=== PATIENT | male | born 1975 | race Caucasian/White ===

== ENCOUNTER → 2020-12-31 15:04 | Outpatient (CLI) | payer OTHER, SELFPAY ==
[2020-12-31 18:28] LABS: Anion Gap 6 (5-15); BUN 18 mg/dL (7-18); BUN/Creat Ratio 15.3 RATIO (10-20); Calcium,Total 9.1 mg/dL (8.5-10.1); Chloride 102 mmol/L (98-107); Cholesterol 216 mg/dL (200); Creatinine, Serum 1.18 mg/dL (0.70-1.30); EST Glomerular Filtration Rate 71 mL/min (>60); Est Glom Filt Rate - Afr Amer 85 mL/min (>60); Glucose 90 mg/dL (74-106); High Density Lipoprotein 87 mg/dL; Potassium 3.6 mmol/L (3.5-5.1); Sodium Level 137 mmol/L (136-145); Triglycerides 104 mg/dL; Very Low Density Lipoprotein 21 mg/dL (5-40)
== END ==
PROVIDERS: PCP Family Medicine; Referring Provider Family Medicine; Visit Provider Family Medicine
DX: Z00.00 Encounter for general adult medical examination without abnormal findings (principal)
CPT/HCPCS: 36415; 80048; 80061

== ENCOUNTER → 2024-11-22 | Outpatient (CLI) | payer OTHER, SELFPAY ==
--- NOTE | 2024-11-22 09:59 | RAD_ITS ---
PROCEDURE: SHOULDER MIN 2 VIEWS 11/22/2024 REASON FOR EXAM: PAIN, LIMITED RANGE OF MOTION TECHNIQUE: Procedure Code: RAD Modality: DX Procedure: SHOULDER MIN 2 VIEWS Laterality: Left COMPARISON: None. FINDINGS: BONES: No acute fracture or focal osseous lesion. JOINTS: No dislocation. Mild arthritic changes in the glenohumeral and acromioclavicular joints. SOFT TISSUES: The soft tissues are unremarkable. RAD/Shoulder min 2 Views IMPRESSION: No acute findings. Mild degenerative osteoarthrosis. Reading Location: [id number]
--- OUTSIDE RECORDS SUMMARY | 2024-11-22 10:48 | XMS RPT_ITS | CCD ---
Author Organization [facility] ion [facility] Care Team Providers [facility] A[facility] Name Role Phone Rosybharat Celi Murillo Unavailable Unavailable Harsha Vieira MD Unavailable Deedee Aguilar Unavailable Unavailable Laipply, Jazzmine Unavailable Unavailable PROVIDER, UNKNOWN Unavailable Unavailable Jolliff, Madisyn S Unavailable Unavailable Laipply, Jazzmine Unavailable Unavailable PROVIDER, UNKNOWN Unavailable Unavailable Jolliff, Madisyn S Unavailable Unavailable Laipply, Jazzmine Unavailable Unavailable Jolliff, Madisyn S Unavailable Unavailable PROVIDER, UNKNOWN Unavailable Unavailable Laipply, Jazzmine Unavailable Unavailable Jolliff, Madisyn S Unavailable Unavailable PROVIDER, UNKNOWN Unavailable Unavailable Laipply, Jazzmine Unavailable Unavailable Jolliff, Madisyn S Unavailable Unavailable PROVIDER, UNKNOWN Unavailable Unavailable Laipply, Jazzmine Unavailable Unavailable Jolliff, Madisyn S Unavailable Unavailable PROVIDER, UNKNOWN Unavailable Unavailable Laipply, Jazzmine Unavailable Unavailable Jolliff, Madisyn S Unavailable Unavailable PROVIDER, UNKNOWN Unavailable Unavailable Laipply, Jazzmine Unavailable Unavailable Jolliff, Madisyn S Unavailable Unavailable PROVIDER, UNKNOWN Unavailable Unavailable Laipply, Jazzmine Unavailable Unavailable Jolliff, Madisyn S Unavailable Unavailable PROVIDER, UNKNOWN Unavailable Unavailable Laipply, Jazzmine Unavailable Unavailable Jolliff, Madisyn S Unavailable Unavailable PROVIDER, UNKNOWN Unavailable Unavailable Laipply, Jazzmine Unavailable Unavailable Jolliff, Madisyn S Unavailable Unavailable PROVIDER, UNKNOWN Unavailable Unavailable Laipply, Jazzmine Unavailable Unavailable PROVIDER, UNKNOWN Unavailable Unavailable Jolliff, Madisyn S Unavailable Unavailable Leisa Gonzalez Unavailable Unavailable Harsha Vieira MD Unavailable MADISYN EDWARDS Primary Care Unavailable Medications Completed/Discontinued Medications Medication Drug Class(es) Dates Sig (Normalized) Sig (Original) acetaminophen 325 mg / HYDROcodone bitartrate 5 mg oral tablet (20 sources) Opioid Agonist Start: 08-25-2016 take 1 tablet by mouth every six hours as needed for pain HYDROCODONE-ACETA MINOPHEN 5-325 MG TABS 1 tab PO every 6 hours PRN pain HYDROCODONE-ACETA MINOPHEN [id number] Harsha Vieira MD amoxicillin 875 mg / clavulanate 125 mg oral tablet (20 sources) Penicillin-class Antibacterial Start: 08-30-2016 take 1 tablet by mouth twice daily AMOXICILLIN-POT CLAVULANATE 875-125 MG TABS 1 tab PO Twice daily AMOXICILLIN-POT CLAVULANATE [id number] Harsha Vieira MD lansoprazole 15 mg disintegrating oral tablet (11 sources) Proton Pump Inhibitor Start: 08-25-2016 take 1 tablet by mouth once daily PREVACID 15 MG CPDR One tablet by mouth daily LANSOPRAZOLE [id number] Leisa A Gonzalez Start: 08-25-2016 take 1 tablet by ascencion once daily PREVACID 15 MG CPDR One tablet by mouth daily LANSOPRAZOLE [id number] Leisa A Gonzalez MULTIPLE VITAMINS-MINERALS (5 sources) Start: 08-25-2016 take 1 tablet by mouth once daily DAILY MULTIVITAMIN CAPS One tablet by mouth daily MULTIPLE VITAMINS-MINERALS [id number] Leisa A Gonzalez MULTIPLE VITAMINS-MINERALS (6 sources) Start: 08-25-2016 take 1 tablet by mouth once daily DAILY MULTIVITAMIN CAPS One tablet by mouth daily MULTIPLE VITAMINS-MINERALS [id number] Leisa A Gonzalez Problems Active Problems Problem Classification Problem Date Documented Date Episodic/Chronic Esophageal disorders (20 sources) Gastroesophageal reflux disease; Translations: [Gastro-esophageal reflux disease with esophagitis] Onset: 08-25-2016 08-25-2016 Chronic Other nutritional; endocrine; and metabolic disorders (12 sources) Overweight; Translations: [Overweight] Onset: 08-25-2016 08-25-2016 Chronic Unclassified (2 sources) Other specified postprocedural states; Translations: [Other specified postprocedural states] Onset: 03-16-2017 Past or Other Problems Problem Classification Problem Date Documented Date Episodic/Chronic Anal and rectal conditions (20 sources) Perirectal abscess; Translations: [Anal pain] Onset: 08-25-2016 09-08-2016 Episodic Hemorrhoids (11 sources) Hemorrhoids; Translations: [Unspecified hemorrhoids] Onset: 08-25-2016 08-25-2016 Episodic Medical examination/evaluatio n (2 sources) Encounter for other preprocedural examination; Translations: [Encounter for other preprocedural examination] Onset: 12-10-2016 Episodic Skin and subcutaneous tissue infections (2 sources) Pilonidal sinus without abscess; Translations: [Pilonidal sinus without abscess] Onset: 10-13-2016 Episodic Unclassified (6 sources) Family history of malignant neoplasm of prostate; Translations: [Body mass index (BMI) 27.0-27.9, adult] Onset: 10-27-2016 Episodic Results Test Name Value Interpretation Reference Range Facility [facility] 08-09-2022 CN Office Visit (UCWSTR ) ----- KWAN MARIE ([id number]) 1975 M Date Time Provider Department 08/09/22 9:15 AM MADDY KENNEDY [facility] During your visit today, we recorded the following information about you: Temperature Pulse Respiration Blood pressure 97.4 degrees 108/minute 16/minute 122/74 Weight 75.8 kg Maddy Kennedy APRN.CNP 08/09/2022 9:46 AM Signed CC: Patient presents with: Sore Throat: x 3 days HPI: Kwan Marie is a 46 year old male who presents to the office with complaint of sore throat for a few days. Symptoms are staying the same. Associated symptoms includes sore throat. Denies fever, ear pain, cough, nausea, vomiting , and diarrhea. Treatments tried include nothing so far. with no relief of symptoms. Sick contacts: unknown. History of asthma, frequent episodes of bronchitis, chronic bronchitis, bronchiectasis or COPD: No Smoker: No Seasonal/environmental allergies: No The ROS is otherwise negative. The patient's pmh, medications, allergies, and past visits are reviewed. PHYSICAL EXAM: BP 122/74 Pulse 108 Temp 36.3 ?C (97.4 ?F) Resp 16 Wt 75.8 kg (167 lb) SpO2 98% General appearance: alert, cooperative, pleasant, in no acute distress Head: Normocephalic Eyes: EOM's intact, conjunctiva pink and moist, no icterus, sclera white, non-injected Ears: Right ear: External ear/canal- Normal, TM - clear with good landmarks. Left ear: External ear/canal- Normal, TM - clear with good landmarks Oropharynx:moderate erythema, without exudates present Heart: Negative. RRR without obvious murmur, gallop, or rubs. No ectopy. Lungs: clear to auscultation, without rales or wheeze, good air exchange No past medical history on file. No past surgical history on file. ALLERGIES Patient has no known allergies. MEDICATIONS No prescriptions on file. No family history on file. Social History Tobacco Use Smoking status: Never ASSESSMENT/PLAN: 1. Sore throat - ICD9: 462, ICD10: J02.9 - STREP A MOLECULAR (POC) - neg - RORNQIHOFYFTGDJ-JOVRCVK-L IDOCAINE ([facility]) Prescription instructions reviewed with patient as applicable. Potential red flag symptoms discussed with the patient. Reviewed appropriate action plan to take if red flag symptoms occur. Patient agreeable to treatment plan. Will follow up if symptoms worsen. Maddy Kennedy APRN.PERMIT COORDINATOR Allergies As of Date: 08/09/2022 (No Known Allergies) Date Reviewed: 08/09/2022 Reviewed by: Talia Owens - Fully Assessed Reason for Visit: Sore Throat [200] Cmt: x 3 days Primary Visit Diagnosis:Sore throat [J02.9] Order(s):STREP A MOLECULAR (POC) [2879943] Order #: [id number]. #:[id number]-LAB kqybkkeqxkEGLDT-cqpwhw-nq docaine (BMX 1:1:1) 1:1:1 liqdMix in equal amounts - 1 T every 2hrs as needed for mouth pain, Swish/swallow or expectorate. (8oz)Disp: 240 mLRfl: 0 Prescriptions as of 08/09/2022 - golbdonkvsASMEN-pjpmml-cn docaine (BMX 1:1:1) 1:1:1 liqd Mix in equal amounts - 1 T every 2hrs as needed for mouth pain, Swish/swallow or expectorate. (8oz) Problem List As Of Date: 08/09/2022 (None) Prescriptions ordered this encounter Disp Refills Start End WCLQLTJDPYVUCMC-VGJFYBL-T IDOCAINE (C* 240 * 0 08/09/2022 Sig: Mix in equal amounts - 1 T every 2hrs as needed for mouth pain, Swish/swallow or expectorate. (8oz) Encounter Status:Closed by MADDY KENNEDY on 08/09/22 Normal [facility] Basic Metabolic Profile (BMP )on 12-31-2020 BUN/CRE 15.3 RATIO Normal 10-20 [facility] Comment on above: Performed By: #### L 500.2500, L500.4100 #### [facility] [address] [place], [address] CA,Total 9.1 mg/dL Normal 8.5-10.1 [facility] Comment on above: Performed By: #### L 500.2500, L500.4100 #### [facility] [address] [place], [address] Chloride [Moles/Vol] 102 mmol/L Normal 98-107 [facility] Comment on above: Performed By: #### L 500.2500, L500.4100 #### [facility] [address] [place], [address] CO2 [Moles/Vol] 29.0 mmol/L Normal 21.0-32.0 [facility] Comment on above: Performed By: #### L 500.2500, L500.4100 #### [facility] [address] [place], [address] Creatinine [Mass/Vol] 1.18 mg/dL Normal 0.70-1.30 [facility] Comment on above: Result Comment: The validity of the calculated GFR GFRAA in patients over 70 years has not been determined. Clinical correlation is essential. Performed By: #### L 500.2500, L500.4100 #### [facility] [address] [place], [address] EST GFR - AA 85 mL/min Normal >60 [facility] Comment on above: Result Comment: Afri can Ghanaian GFR Calc Performed By: #### L 500.2500, L500.4100 #### [facility] [address] [place], [address] GAP 6 Normal 5-15 [facility] Comment on above: Performed By: #### L 500.2500, L500.4100 #### [facility] [address] [place], [address] GFR/1.73 sq M.predicted among non-blacks MDRD (S/P/Bld) [Vol rate/Area] 71 mL/min/{1.73_m2} Normal >60 [facility] Comment on above: Result Comment: Non- GFR Calc Performed By: #### L 500.2500, L500.4100 #### [facility] [address] [place], [address] Glucose [Mass/Vol] 90 mg/dL Normal 74-106 [facility] Comment on above: Result Comment: Holger cox note revised GLUCOSE reference range effective 2017. Performed By: #### L 500.2500, L500.4100 #### [facility] [address] [place], [address] Potassium [Moles/Vol] 3.6 mmol/L Normal 3.5-5.1 [facility] Comment on above: Performed By: #### L 500.2500, L500.4100 #### [facility] [address] [place], [address] Sodium [Moles/Vol] 137 mmol/L Normal 136-145 [facility] Comment on above: Performed By: #### L 500.2500, L500.4100 #### [facility] [address] [place], [address] Urea nitrogen [Mass/Vol] 18 mg/dL Normal 7-18 [facility] Comment on above: Performed By: #### L 500.2500, L500.4100 #### [facility] [address] [place], [address] Lipid Profileon 12-31-2020 Cholesterol [Mass/Vol] 216 mg/dL High 200 [facility] Comment on above: Result Comment: <200 mg/dL Desirable 200-240 mg/dL Borderline >240 mg/dL High Risk Performed By: #### L 500.2500, L500.4100 #### [facility] [address] [place], [address] Cholesterol in HDL [Mass/Vol] 87 mg/dL Normal [facility] Comment on above: Result Comment: The drugs N-Acetylcysteine and Metamizole may falsely depress this assay. Reference Range HDL <40 mg/dL Low HDL Cholesterol HDL >or= 60 mg/dL High HDL Cholesterol Performed By: #### L 500.2500, L500.4100 #### [facility] [address] [place], [address] Cholesterol in LDL [Mass/Vol] 108 mg/dL Normal 0-130 [facility] Comment on above: Performed By: #### L 500.2500, L500.4100 #### [facility] [address] [place], [address] Cholesterol in VLDL [Mass/Vol] 21 mg/dL Normal 5-40 [facility] Comment on above: Performed By: #### L 500.2500, L500.4100 #### [facility] [address] [place], [address] Triglyceride [Mass/Vol] 104 mg/dL Normal [facility] Comment on above: Result Comment: The drugs N-Acetylcysteine and Metamizole may falsely depress this assay. Serum Triglycerides Reference Interval Normal <150 mg/dL Borderline high 150 - 199 mg/dL High 200 - 499 mg/dL Very High > or = 500 mg/dL Performed By: #### L 500.2500, L500.4100 #### [facility] [address] [place], [address] CT Drainage Visceral/Organ A bscess or Cyston 10-13-2016 CT Drainage Visceral/Organ Abscess or Cyst Patient Name: KWAN MARIE CT Exam Date/Time 10/13/2016 12:34:[address] Drainage - Abscess or Cyst Ordering Physician MD NILO, JAZZMINE BARAJAS Accession Number [id number] CPT4 Codes 65133 (CT Drainage Visceral/Organ Abscess or Cyst) Reason For Exam perrectal abscess/drain tube leaking from the sides, unresolved with surgical drainage x2 Report CT PELVIS WITHOUT CONTRAST CLINICAL INDICATION: Catheter leakage. Concern for drainage catheter dislodgment. TECHNIQUE: Transaxial through the pelvis before and after intracatheter administration of dilute contrast (5 mL of Isovue-370 diluted with 55 mL normal saline). COMPARISON: CT guided drainage drain placement performed 10/07/2016 FINDINGS: Limited axial CT images show the 8 Burkinan drainage catheter in stable position as compared to the original placement CT from 10/07/2016. There is decrease in size of the perirectal abscess cavity, measuring 1.4 x 1.2 cm (previously 2.6 x 1.6 cm). Upon contrast injection of the abscess catheter, there is filling of the abscess cavity with a small fistula to the tip of the coccyx. No rectal fistula. Setons sutures noted in stable position. No pelvic lymphadenopathy is noted. IMPRESSION: Abscess drainage catheter in stable position within a small perirectal abscess, decreased in size from the initial CT from drain placement. There is a small fistula to the tip of the coccyx. Report Dictated on Final Dictated: 10/13/2016 12:47 pm Dictating Physician: MD RADHIKA, ABEBE Signed Date and Time: 10/13/2016 12:59 pm Signed by: MD GARRIDO KEVIN Transcribed Date and Time: 10/13/2016 12:47 Normal [facility] CT Drainage Visceral/Organ A bscess or Cyston 10-07-2016 CT Drainage Visceral/Organ Abscess or Cyst Patient Name: KWAN MARIE CT Exam Date/Time 10/07/2016 08:58:[address] Drainage - Abscess or Cyst Ordering Physician MD NILO, AJZZMINE BARAJAS Accession Number [id number] CPT4 Codes 69795 (CT Drainage Visceral/Organ Abscess or Cyst) Reason For Exam perirectal abscess Report CT GUIDED ABSCESS DRAINAGE: CLINICAL INDICATION: Perirectal abscess. ANESTHESIA: Moderate conscious sedation was provided with 2mg Versed and 150 mcg Fentanyl. An independent trained observer monitored the patient during the procedure. The intra service time 30 was minutes. Cardiorespiratory monitoring was provided and the patient left department in stable condition. Procedure: Following discussion with the patient regarding risks, benefits and alternatives, the skin was sterilely prepared and local anesthesia was applied. Axial CT images of the pelvis were performed for the purpose of localization of the fluid collection. There is a 10 x 8 mm left perirectal fluid collection with air bubble best seen on series 2, image 26). There is an adjacent seton device. Under CT guidance, a 15 cm 20 gauge Yueh needle was advanced into the left perirectal fluid collection. Aspiration was performed with a yield of 3ccs of turbid pink pus was collected and sent for culture and sensitivity. Subsequently, a 60cm Amplatz guidewire was advanced, and following skin track dilation an 8Fr multipurpose drainage catheter was advanced into the fluid collection. CTA images confirm the pigtail catheter was coiled within the left jhon-anal fluid collection. The locking pigtail catheter was secured in place and left open to gravity drainage. The specimen was sent for pathologic evaluation, including culture and sensitivity. The patient tolerated procedure well. Impression: Technically successful CT-guided drainage tube placement. Report Dictated on Final Dictated: 10/07/2016 12:28 pm Dictating Physician: TAVO JAMES DO, I Signed Date and Time: 10/07/2016 12:35 pm Signed by: TAVO JAMES DO, I Transcribed Date and Time: 10/07/2016 12:28 Normal [facility] CULT./ST. BACTERIAon 017 CULT./ST. BACTERIA [facility] Patient name: KWAN MARIEJoseR.N.: [id number] : 1975 Age: 40 Sex: M Ord. Physician: JAZZMINE CORCORAN Location: [address] Copy to: JAZZMINE CORCORAN DISCHARGED: 10/07/16 Adm. Date: 10/07/16 MICROBIOLOGYORDER#: [id number] COLLECTED: 10/07/16 10:42SOURCE: Abscess JHON-RECTAL RECEIVED: 10/07/16 10:42STAIN GRAM FINAL 10/12/16 07:5108Many polymorphonuclear cells/lpf.No organisms seen.CULT./ST. BACTERIA FINAL 10/12/16 07:51Moderate Escherichia coliFew Pseudomonas aeruginosa E. coli P. aeruginosaANTIBIOTICS SHERRI INTRP SHERRI INTRP __Amikacin <=2 S <=2 S Amoxicillin/Clavulanic A 16 I Ampicillin >=32 R Ampicillin/Sulbactam >=32 R Aztreonam <=1 S Cefazolin >=64 R Cefepime <=1 S <=1 S Ceftriaxone <=1 S Ciprofloxacin <=0.25 S <=0.25 S Ertapenem <=0.5 S Gentamicin <=1 S <=1 S Levofloxacin <=0.12 S <=0.12 S Meropenem <=0.25 S <=0.25 S Pip/Tazobactam 64 I <=4 S Tetracycline <=1 S Trimeth/Sulfa >=320 R __S=SENSITIVE I=INTERMEDIATE R=RESISTANT S-DD=SUSCEPTIBLE DOSE DEPENDENT SHERRI VALUES = ug/mL Normal [facility] Comment on above: Performed By: #### C Bharat/ROM, C/ANNELISE ####[address] [address] CULTURE ANAEROBEon 7 CULTURE ANAEROBE [facility] Patient name: MITAKWAN SALEHR.N.: [id number] : 1975 Age: 40 Sex: M Ord. Physician: JAZZMINE CORCORAN Location: [address] Copy to: JAZZMINE CORCORAN DISCHARGED: 10/07/16 Adm. Date: 10/07/16 MICROBIOLOGYORDER#: [id number] COLLECTED: 10/07/16 10:42SOURCE: Abscess JHON-RECTAL RECEIVED: 10/07/16 10:42CULTURE ANAEROBE FINAL 10/12/16 07:45Few Bacteroides fragilis Group Normal [facility] Comment on above: Performed By: #### C Bharat/ROM, C/ANNELISE ####[address] [address] CULTURE FUNGUSon 10-07-2016 CULTURE FUNGUS [facility] Patient name: MITAKWAN SALEHR.N.: [id number] : 1975 Age: 40 Sex: M Ord. Physician: JAZZMINE CORCORAN Location: [id number] Copy to: JAZZMINE CORCORAN DISCHARGED: 10/07/16 Adm. Date: 10/07/16 MICROBIOLOGYORDER#: [id number] COLLECTED: 10/07/16 10:43SOURCE: Abscess JHON-RECTAL RECEIVED: 10/07/16 10:43CULTURE FUNGUS FINAL 10/29/16 01:07Few Becky glabrata Normal [facility] Comment on above: Performed By: #### S /FUN, C/FUN ####[place] [address] Prothrombin Timeon 7 INR Coag RelTime (PPP) 1.1 {INR} Normal 0.9-1.1 [facility] Comment on above: Result Comment: August mmended Anticoagulant Therapy:SEE BELOW----- INR of 2.0 - 3.0 :- Prophylaxis of Venous Thrombosis (high-risk surgery)- Treatment of Venous Thrombosis- Treatment of Pulmonary Embolism (Includes tissue heartvalves, Acute Myocardial Infarction to prevent systemicembolism, Valvular Heart Disease, and Atrial Fibrillation)----- INR of 2.5 - 3.5 :- Mechanical Prosthetic Valves (high risk)- If oral anticoagulant therapy is used to preventMyocardial Infarction Performed By: #### P T ####[address] [address] Prothrombin time (PT) Coag time (PPP) 11.0 s Normal 9.0-12.0 [facility] Comment on above: Result Comment: . Performed By: #### P T ####[place] [address] STAIN FUNGUSon 10-07-2016 STAIN FUNGUS [facility] Patient name: CYNTHIA KWAN ZengN.: [id number] : 1975 Age: 40 Sex: M Ord. Physician: JAZZMINE CORCORAN Location: [id number] Copy to: JAZZMINE CORCORAN DISCHARGED: 10/07/16 Adm. Date: 10/07/16 MICROBIOLOGYORDER#: [id number] COLLECTED: 10/07/16 10:43SOURCE: Abscess JHON-RECTAL RECEIVED: 10/07/16 10:43STAIN FUNGUS FINAL 10/07/16 14:No fungal elements seen.-Method: Direct Exam by Calcofluor Stain Normal [facility] Comment on above: Performed By: #### S /FUN, C/FUN ####[place] [address] CT Pelvis w/ Contrast (IV On ly)on 10-05-2016 CT Pelvis w/ Contrast (IV Only) Patient Name: KWAN MARIE CT Exam Date/Time 10/05/2016 13:48:[address] Pelvis w/ Contrast (IV Only) Ordering Physician MD NILO, JAZZMINE BARAJAS Accession Number [id number] CPT4 Codes Q9967 (), 81602 (CT Pelvis w/ Contrast (IV Only)) Reason For Exam rectal abscess Report Clinical indication: Rectal abscess. COMPARISON: None. TECHNIQUE: [address] images were obtained of the pelvis after the uneventful IV administration of 75 mL of Isovue-370. Images were reformatted in coronal and sagittal projections. FINDINGS: The sigmoid colon and bladder are normal. The visualized bowel is of normal caliber without evidence of wall thickening or obstruction. The appendix is normal. There is a small thin left perirectal fluid collection measuring 4.3 x 1.2 cm in size with peripheral enhancement (series 3 image number 30). This is consistent with a perirectal abscess. There is surrounding fat infiltration. Additionally, a radiopaque loop is present in the region of the inferior rectum. This may represent a surgical drain. There is no significant surrounding fluid. No enlarged intrapelvic lymph nodes or free fluid is identified. The osseous structures are unremarkable. IMPRESSION: Left perirectal abscess measuring 4.3 x 1.2 cm in size. Radiopaque loop in the region of the distal rectum. This is of uncertain etiology and may represent a small surgical drain. Clinical correlation is needed. Report Dictated on Final Dictating Physician: MD JOLANTA, CHERI CM Signed Date and Time: 10/05/2016 3:16 pm Signed by: MD STOVER YUN SOILA Transcribed Date and Time: 10/05/2016 3:17 [facility] Office Visit: lisa nicholson utureon 09-16-2016 Dietary management education, guidance, and counseling (procedure) yes Invalid Interpretation Code [facility] [place] Work Phone: Documentation of current medications (procedure) Done Invalid Interpretation Code [facility] Work Phone: Fall risk assessment No Invalid Interpretation Code [facility] [place] Work Phone: Protein mass conc Done [facility] Work Phone: Tobacco smoking status NHIS Never Invalid Interpretation Code [facility] Work Phone: Tobacco smoking status NHIS Never smoker [facility] Work Phone: Tobacco use [facility] Never smoker Invalid Interpretation Code [facility] Work Phone: Microbiology: (P) Culture, D eep Woundon 09-15-2016 CUDW . [facility] Work Phone: Microbiology: Culture, Deep Woundon 09-15-2016 CUDW . [facility] [place] Work Phone: GE use only - for LinkLogic import when terms are not otherwise specified . Invalid Interpretation Code [facility] Work Phone: Microbiology: (P) Culture, D eep Woundon 09-13-2016 CUDW Cult, AnaerobicCheck ing for anaerobes, further studies to follow. [facility] Work Phone: GE use only - for LinkLogic import when terms are not otherwise specified Trimethoprim/Sulfametho $ <=20 S Invalid Interpretation Code [facility] Work Phone: Microbiology: (P) Culture, D eep Woundon 09-10-2016 GE use only - for LinkLogic import when terms are not otherwise specified . Invalid Interpretation Code [facility] Work Phone: Office Visit: I&D jhon recta l abscesson 08-30-2016 Documentation of current medications (procedure) Done Invalid Interpretation Code [facility] [place] Work Phone: Fall risk assessment No [facility] Work Phone: Protein mass conc Done [facility] [employer] Work Phone: Clinical Lists Update: Prelo news clerk 08-25-2016 Tobacco smoking status NHIS Never smoker [facility] [place] Work Phone: Office Visit: Infected recta l skin tagon 08-25-2016 Dietary management education, guidance, and counseling (procedure) yes Invalid Interpretation Code [facility] [place] Work Phone: Documentation of current medications (procedure) Done Invalid Interpretation Code [facility] [place] Work Phone: Fall risk assessment No [facility] [place] Work Phone: Protein mass conc Done [facility] [employer] Work Phone: Tobacco smoking status NHIS Never [facility] [place] Work Phone: Tobacco smoking status NHIS Never smoker [facility] [place] Work Phone: Tobacco use [facility] Never smoker Invalid Interpretation Code [facility] [place] Work Phone: Vital Signs Date Time Vital Sign Value Performing Clinician Facility 09-16-2016 10:01-0400 BMI (Body Mass Index) 27.46 kg/m2 Harsha Vieira MD [facility] [place] Work Phone: 09-16-2016 10:01-0400 Body Temperature 97.9 [degF] Harsha Vieira MD [facility] [place] Work Phone: 09-16-2016 10:01-0400 Height 162.56 cm Harsha Vieira MD [facility] [place] Work Phone: 09-16-2016 10:01-0400 Pulse (Heart Rate) 62 /min Harsha Vieira MD [facility] [place] Work Phone: 09-16-2016 10:01-0400 Respiratory Rate 16 /min Harsha Vieira MD [facility] [place] Work Phone: 09-16-2016 10:01-0400 Weight 72.58 kg Harsha Vieira MD [facility] [place] Work Phone: 08-30-2016 12:54-0400 Body Temperature 99.6 [degF] Deedee Aguilar [facility] Work Phone: 08-30-2016 12:54-0400 BP Diastolic 74 mm[Hg] Deedee Aguilar [facility] Work Phone: 08-30-2016 12:54-0400 BP Systolic 118 mm[Hg] [facility] Work Phone: 08-30-2016 12:54-0400 Height 162.56 cm [facility] Work Phone: 08-30-2016 12:54-0400 Pulse (Heart Rate) 90 /min Deedee Aguilar [facility] Work Phone: 08-30-2016 12:54-0400 Respiratory Rate 18 /min [facility] Work Phone: 08-25-2016 14:25-0400 BMI (Body Mass Index) 27.8 kg/m2 Harsha Vieira MD [facility] Work Phone: 08-25-2016 14:25-0400 Body Temperature 98.1 [degF] Harsha Vieira MD [facility] Work Phone: 08-25-2016 14:25-0400 BP Diastolic 72 mm[Hg] Harsha Vieira MD [facility] Work Phone: 08-25-2016 14:25-0400 BP Systolic 119 mm[Hg] Harsha Vieira MD [facility] Work Phone: 08-25-2016 14:25-0400 BSA (Body Surface Area) 1.79 m2 Harsha Vieira MD [facility] Work Phone: 08-25-2016 14:25-0400 Height 162.56 cm Harsha Vieira MD [facility] Work Phone: 08-25-2016 14:25-0400 Pulse (Heart Rate) 108 /min Harsha Vieira MD [facility] Work Phone: 08-25-2016 14:25-0400 Pulse Oximetry 97 % Harsha Vieira MD [facility] Work Phone: 08-25-2016 [id number] Respiratory Rate 18 /min Harsha Vieira MD [facility] Work Phone: 08-25-2016 14:250400 Weight 73.48 kg Harsha Vieira MD [facility] Work Phone: 08-25-2016 08:04-0400 Height 161.93 cm Leisa Gonzalez [facility] Work Phone: Encounters Encounter Date Encounter Type Care Provider Facility Start: 08-09-2022 End: 08-09-2022 ambulatory MADISYN JESSICA [facility] Facility:[facility] Start: 03-16-2017 Ambulatory [facility] Start: 03-14-2017 Ambulatory [facility] Start: 12-15-2016 Ambulatory [facility] Start: 12-15-2016 Ambulatory [facility] Start: 12-10-2016 Ambulatory [facility] Start: 10-27-2016 Ambulatory [facility] Start: 10-25-2016 Ambulatory [facility] Start: 10-13-2016 Ambulatory [facility] Start: 10-07-2016 Ambulatory [facility] Start: 10-05-2016 Ambulatory [facility] Start: 09-30-2016 Ambulatory [facility] Start: 09-27-2016 Ambulatory [facility] Procedures Date Procedure Procedure Detail Performing Clinician Start: 09-16-2016 End: 09-16-2016 Dietary management education, guidance, and counseling Harsha Vieira MD Start: 08-25-2016 End: 08-25-2016 Dietary management education, guidance, and counseling Harsha Vieira MD Plan of Treatment Date Care Activity Detail Author Start: 09-16-2016 End: 09-16-2016 Appointment Appointment [facility] [employer] Work Phone: Start: 09-16-2016 End: 09-16-2016 Ct pelvis w/dye CT Pelvis with Contrast [facility] [employer] Work Phone: Start: 09-09-2016 End: 09-09-2016 Appointment Appointment [facility] [employer] Work Phone: Start: 08-30-2016 End: 08-30-2016 Appointment Appointment [facility] Work Phone: Start: 08-30-2016 End: 09-08-2016 Drainage of skin abscess Incision & Drainage, complex/ multiple [facility] [employer] Work Phone: Start: 08-25-2016 End: 08-25-2016 Appointment Appointment [facility] [employer] Work Phone: Start: 08-25-2016 End: 08-25-2016 Ct pelvis w/dye CT Pelvis with Contrast [facility] [employer] Work Phone: Payers Date Payer Category Payer Private Health Insurance [id number] Unknown Progress note 08-09-2022 Note Date & Type Note Facility 08-09-2022 Note HNO ID: [id number] Author: Maddy Kennedy APRN.PERMIT COORDINATOR Service: ? Author Type: Nurse Practitioner Type: Progress Notes Filed: 08/09/2022 9:46 AM Note Text: CC: Patient presents with: Sore Throat: x 3 days HPI: Kwan Marie is a 46 year old male who presents to the office with complaint of sore throat for a few days. Symptoms are staying the same. Associated symptoms includes sore throat. Denies fever, ear pain, cough, nausea, vomiting , and diarrhea. Treatments tried include nothing so far. with no relief of symptoms. Sick contacts: unknown. History of asthma, frequent episodes of bronchitis, chronic bronchitis, bronchiectasis or COPD: No Smoker: No Seasonal/environmental allergies: No The ROS is otherwise negative. The patient's pmh, medications, allergies, and past visits are reviewed. PHYSICAL EXAM: BP 122/74 Pulse 108 Temp 36.3 ?C (97.4 ?F) Resp 16 Wt 75.8 kg (167 lb) SpO2 98% General appearance: alert, cooperative, pleasant, in no acute distress Head: Normocephalic Eyes: EOM's intact, conjunctiva pink and moist, no icterus, sclera white, non-injected Ears: Right ear: External ear/canal- Normal, TM - clear with good landmarks. Left ear: External ear/canal- Normal, TM - clear with good landmarks Oropharynx:moderate erythema, without exudates present Heart: Negative. RRR without obvious murmur, gallop, or rubs. No ectopy. Lungs: clear to auscultation, without rales or wheeze, good air exchange No past medical history on file. No past surgical history on file. ALLERGIES Patient has no known allergies. MEDICATIONS No prescriptions on file. No family history on file. Social History Tobacco Use Smoking status: Never ASSESSMENT/PLAN: 1. Sore throat - ICD9: 462, ICD10: J02.9 - STREP A MOLECULAR (POC) - neg - [id number] ([facility]) Prescription instructions reviewed with patient as applicable. Potential red flag symptoms discussed with the patient. Reviewed appropriate action plan to take if red flag symptoms occur. Patient agreeable to treatment plan. Will follow up if symptoms worsen. Maddy Kennedy APRN.[facility] Summary Purpose Family History No Family History Records FoundNo Family History Records FoundNo Family History Records FoundNo Family History Records Found Advance Directives No Advanced Directives Records FoundNo Advanced Directives Records FoundNo Advanced Directives Records FoundNo Advanced Directives Records Found Additional Source Comments (unrecognized sect ion and content) No Status Records FoundNo Status Records FoundNo Status Records FoundNo Status Records Found INFORMATION SOURCE (unrecogn ized section and content) DATE [facility] DATE CREATED AUTHOR AUTHOR'S ORGANIZ ATION 08/24/2017 [facility] [employer] DATE CREATED AUTHOR AUTHOR'S ORGANIZ ATION 01/02/2021 [facility] DATE CREATED AUTHOR AUTHOR'S ORGANIZ ATION 08/11/2022 [facility] FOR RECORDS PERTAINING TO PATIENTS WHO ARE OR HAVE BEEN ENROLLED IN A CHEMICAL DEPENDENCY/SUBSTANCEABUSE PROGRAM, SOME INFORMATION MAY BE OMITTED. This clinical summary was aggregated from multiple sources. Caution should be exercised in using it in the provision of clinical care. This summary normalizes information from multiple sources, and as a consequence, information in this document may materially change the coding, format and clinical context of patient data. In addition, data may be omitted in some cases. CLINICAL DECISIONS SHOULD BE BASED ON THE PRIMARY CLINICAL RECORDS. [employer] [facility]. provides no warranty or guarantee of the accuracy or completeness of information in this document.
== END | disposition home or self-care (01) ==
LOC: MTRAD 09:59
PROVIDERS: PCP Family Medicine; Referring Provider Family Medicine; Visit Provider Family Medicine
DX: M12.812 Other specific arthropathies, not elsewhere classified, left shoulder (principal)
CPT/HCPCS: 73030